=== PATIENT | male | born 1940 | race Caucasian/White ===

== ENCOUNTER 2017-02-06 08:57 | Emergency (ER) | payer MEDICARE, OTHER ==
[~2017-02-06 08:57] MED LIST: ASPIR 8181 MG PO; ASPIRIN81 MG PO; ATENOLOL25 MG PO; BENAZEPRIL HCL20 MG PO; BENAZEPRIL-HCT PO; BENEFIBER1 PKT PO; BYSTOLIC20 MG PO; CATAPRES0.1 MG PO; COLACE100 MG PO; DETROL LA4 MG PO; DITROPAN5 MG PO; DURICEF500 MG PO; ECOTRIN325 MG PO; ECOTRIN81 M1 PO; EQL FISH OIL 1,1 CA1 PO; FLOMAX0.4 MG PO; HYDROCHLOROTHIA25 MG PO; INVANZ1 G/VIA1 IV; IRON1 TA1 PO; IRON45 MG PO; ISORDIL10 MG PO; KEFLEX500 MG PO; MACROBID100 MG/CAP PO; METAMUCIL1 PKT PO; MIRALAX17 GM PO; MULTI BETIC PO; NIASPAN1000 MG PO; NORCO 10/3251 TAB PO; NORVASC10 MG PO; NUCYNTA50 MG PO; OMEPRAZOLE20 M2 PO; OXYBUTYNIN CHLOR5 MG PO; OXYCODONE-ACET1 EACH PO; PAIN RELIEF650 MG PO; PREVACID15 MG PO; PROSED/DS TABLE1 TA PO; ROXICODONE5 MG PO; STOOL SOFTENER; STOOL SOFTENER50 M1 PO; TIZANIDINE HCL4 MG PO; TRICOR145 M1 PO; TUMS ULTRA1000 M1 PO; TUMS500 M1 PO; TYLENOL325 MG PO; TYLENOL500 MG PO; VITAMIN C PO; VYTORIN 10/401 TAB PO; ZOFRAN4 MG PO; [UNRECOGNIZED DRUG - OTHER] RC
[2017-02-06] MEDS ORDERED: COREG25 M1 PO (09:12)
[2017-02-06] MEDS ORDERED: ELIQUIS2.5 M1 PO (09:12)
[2017-02-06] MEDS ORDERED: LISINOPRIL2.5 M1 PO (09:12)
[2017-02-06] MEDS ORDERED: TRICOR145 M2 PO (09:13)
[2017-02-06] MEDS ORDERED: NIACIN PO (09:13)
[2017-02-06] MEDS ORDERED: VYTORIN 10-401 EACH PO (09:13)
[2017-02-06] MEDS ORDERED: CATAPRES0.1 M1 PO (09:14)
[2017-02-06] MEDS ORDERED: ZANAFLEX4 M2 PO (09:15)
[2017-02-06] MEDS ORDERED: NORVASC10 M2 PO (09:16)
[2017-02-06] MEDS ORDERED: OMEPRAZOLE20 M3 PO (09:33)
[2017-02-06] MEDS ORDERED: ASPIRIN EC81 MG PO (09:34)
[2017-02-06] MEDS ORDERED: TUMS200 MG PO (09:34)
[2017-02-06] MEDS ORDERED: CENTRUM MEN'S1 EACH PO (09:37)
[2017-02-06] MEDS ORDERED: BENADRYL25 M3 PO (09:38)
[2017-02-06] MEDS ORDERED: MIRALAX17 G2 PO (09:38)
[2017-02-06] MEDS ORDERED: FISH OIL 11000 MG/CA PO (09:38)
[2017-02-06] MEDS ORDERED: TYLENOL EXTRA500 M1 PO (09:38)
[2017-02-06] MEDS ORDERED: VITAMIN C500 M3 PO (09:38)
[2017-02-06] MEDS ORDERED: COLACE100 M1 PO (09:38)
[2017-02-06 09:39] LABS: URINE BILIRUBIN NEGATIVE (NEG); URINE BLOOD LARGE (NEG); URINE GLUCOSE (UA) NEGATIVE (NEG); URINE KETONE NEGATIVE (NEG); URINE LEUKOCYTE ESTERASE POSITIVE (NEG); URINE NITRITE NEGATIVE (NEG); URINE PH 6.5 (5.0-8.0); URINE PROTEIN MODERATE (NEG); URINE SPECIFIC GRAVITY 1.015 (1.003-1.030)
[2017-02-06 09:40] LABS: URINE APPEARANCE CLOUDY; URINE COLOR YELLOW
[2017-02-06 09:47] LABS: URINE BACTERIA 3+; URINE WBC 150-180 /[HPF] (0-5)
[2017-02-06 09:53] LABS: BASO % 0.3 % (0-2); EOS % 0.1 % (0-7); HCT-HEMATOCRIT 37.8 % (36.0-53.5); HGB-HEMOGLOBIN 12.3 gm/dl (13.5-17.0); LYMPH ABSOLUTE COUNT 0.6 tho/cmm (0.8-4.5); MCH (MEAN CORPUSCULAR HGB) 29.8 pg (28.0-32.0); MCHC MEAN CORPUSCULAR HGB CONC 32.5 % (32.0-36.0); MCV (MEAN CELL VOLUME) 91.5 fl (82.0-96.0); MEAN PLATELET VOLUME 8.9 cmc (9.4-12.4); MONO % 10.1 % (0-12); MONOCYTE ABSOLUTE COUNT 0.9 tho/cmm (0.0-1.2); NEUTROPHIL ABSOLUTE COUNT 7.5 tho/cmm (1.6-8.0); NEUTROPHIL-AUTOMATED 7.5 tho/cmm (1.6-8.0); NEUTROPHILS % 82.5 % (40-80); PLATELET COUNT 214 tho/cmm (150-450); RED BLOOD COUNT 4.13 mil/cmm (4.40-5.70); RED CELL DISTRIBUTION WIDTH 13.7 % (12.4-16.4); WHITE BLOOD COUNT 9.1 tho/cmm (4.0-10.0)
[2017-02-06 10:09] LABS: ALB/GLOB RATIO 0.8 (0.8-2.0); ALBUMIN 3.4 g/dl (3.5-5.0); ALKALINE PHOSPHATASE 41 U/L (33-138); ALT/SGPT 20 U/L (12-78); ANION GAP 12 mmol/L (0-20); AST/SGOT 17 U/L (10-40); BILIRUBIN,TOTAL 1.2 mg/dl (0.0-1.5); BLOOD UREA NITROGEN 25 mg/dl (6-24); CARBON DIOXIDE-VENOUS 24 mmol/L (22-32); CHLORIDE 108 mmol/l (96-110); GLUCOSE 117 mg/dL (70-110); LIPASE 112 U/L (73-393); POTASSIUM 4.3 mmol/L (3.7-5.1); SODIUM 140 mmol/L (135-145); eGFR VALUE FOR BLACK 41 mL/Min
[2017-02-06] MEDS ORDERED: MACROBID 100 M100 M1 PO (10:45)
[2017-06-23] MEDS ORDERED: NORVASC5 M2 PO (16:46)
[2017-06-23] MEDS ORDERED: PRINIVIL5 M1 PO (16:46)
[2017-06-23] MEDS ORDERED: ELIQUIS2.5 M1 PO (16:46)
[2017-06-23] MEDS ORDERED: VYTORIN 10-401 EACH PO (16:46)
[2017-06-23] MEDS ORDERED: OMEPRAZOLE20 M3 PO (16:47)
[2017-06-23] MEDS ORDERED: TUMS200 MG PO (16:47)
[2017-06-23] MEDS ORDERED: COREG12.5 M1 PO (16:47)
[2017-06-23] MEDS ORDERED: FENOFIBRATE145 M2 PO (16:47)
[2017-06-23] MEDS ORDERED: ASPIRIN81 M1 PO (16:48)
[2017-06-23] MEDS ORDERED: TYLENOL EXTRA500 M1 PO (16:48)
[2017-06-23] MEDS ORDERED: VITAMIN C500 M3 PO (16:48)
[2017-06-23] MEDS ORDERED: MULTIVITAMINS1 EAC6 PO (16:48)
[2017-06-23] MEDS ORDERED: TIZANIDINE HCL4 M3 PO (16:49)
[2017-06-23] MEDS ORDERED: STOOL SOFTENER PO (16:49)
[2017-06-23] MEDS ORDERED: FISH OIL 11000 MG/CA PO (16:49)
[2017-06-23] MEDS ORDERED: MIRALAX17 G2 PO (16:49)
[2017-06-23] MEDS ORDERED: BENADRYL25 M3 PO (16:50)
[2017-06-26] MEDS ORDERED: KEFLEX500 M4 PO (11:18)
[2017-06-26] MEDS ORDERED: [UNRECOGNIZED DRUG - SUPPLY] FL (11:20)
== END 2017-02-06 11:05 ==
LOC: EDMED 08:57
PROVIDERS: Emergency Medicine
DX: N39.0 Urinary tract infection, site not specified (principal); R06.00 Dyspnea, unspecified; I25.10 Atherosclerotic heart disease of native coronary artery without angina pectoris; I48.91 Unspecified atrial fibrillation; I11.9 Hypertensive heart disease without heart failure; Z95.0 Presence of cardiac pacemaker; Z85.46 Personal history of malignant neoplasm of prostate; Z85.828 Personal history of other malignant neoplasm of skin